=== PATIENT | male | born 1985 | race African-American/Black ===

== ENCOUNTER 2016-12-13 06:58 | Emergency (ER) | payer SELFPAY ==
[~2016-12-13] VITALS: Ht 175.3 cm; Wt 78.0 kg
[~2016-12-13 06:58] MED LIST: METR-1 PO
[2016-12-13 07:11] VITALS: BP 138/86; PULSE 99; RESP 14; TEMP 98.4; O2SAT 96
[2016-12-13] MEDS ORDERED: ACET1CAP18 PO (07:24)
[2016-12-13] MEDS ORDERED: ORPH100T99 PO (07:36)
[2016-12-13] MEDS ORDERED: PRED20 PO (07:36)
--- NOTE | 2016-12-13 07:41 | PD ---
HPI Chief Complaint: Injury Time Seen by Provider: 07:36 Travel History International Travel<30 days: No Contact w/Intl Traveler<30days: No Traveled to known affect area: No History of Present Illness HPI 31-year-old Afro-[place] male presents to emergency Department with worsening right anterior shoulder pain over the past several days. Patient states he did 300 pushups utilizing sets of 40 couple of days ago with increasing right anterior shoulder pain. Patient states he's been taking Tylenol and icing it without improvement. Patient states the pain is now 10 over [address], and is better with rest. Patient denies numbness, tingling, or loss of function of the right upper extremity. He has no other injuries. Has no known drug allergies. PFSH Social History Alcohol Use: Yes Tobacco Use: Yes Substance Use: Yes Allergies-Medications (Allergen,Severity, Reaction): Coded Allergies: No Known Allergies (Unverified , 12/13/16) Reported Meds & Prescriptions Reported Meds & Active Scripts Active Prednisone 20 Mg Tab 20 Mg PO BID Orphenadrine CR (Orphenadrine Citrate) 100 Mg Tab 100 Mg PO Q12HR Flagyl (Metronidazole) 500 Mg Tab 500 Mg PO BID 7 Days Reported Tylenol (Acetaminophen) 325 Mg Cap 325 Mg PO Q6H PRN Review of Systems Except as stated in HPI: all other systems reviewed are Neg General / Constitutional: No: Fever Eyes: No: Visual changes HENT: No: Headaches Cardiovascular: No: Chest Pain or Discomfort Respiratory: No: Shortness of Breath Gastrointestinal: No: Abdominal Pain Genitourinary: No: Dysuria Musculoskeletal: Positive: Myalgias, Pain Skin: No Rash Neurologic: No: Weakness Psychiatric: No: Depression Endocrine: No: Polydipsia Hematologic/Lymphatic: No: Easy Bruising Physical Exam Narrative GENERAL: Patient appears in mild distress. SKIN: Warm and dry. Normal color. Normal turgor. No rash. HEAD: Atraumatic. Normocephalic. EYES: Pupils equal and round. No scleral icterus. No injection or drainage. ENT: No nasal bleeding or discharge. Mucous membranes pink and moist. Pharynx is clear. NECK: Trachea midline. No bony tenderness or step-off. Neck is supple without tenderness. CARDIOVASCULAR: Regular rate and rhythm. RESPIRATORY: No accessory muscle use. Clear to auscultation. Breath sounds equal bilaterally. GASTROINTESTINAL: Abdomen soft, non-tender, nondistended. Hepatic and splenic margins not palpable. MUSCULOSKELETAL: Extremities without clubbing, cyanosis, or edema. No obvious deformities. Patient has point tenderness in the anterior right deltoid and shoulder consistent with rotator cuff tendinitis. Right shoulder Range of motion is limited secondary to pain but strength is intact. NEUROLOGICAL: Awake and alert. No obvious cranial nerve deficits. Motor grossly within normal limits. Five out of 5 muscle strength in the arms and legs. Normal speech. PSYCHIATRIC: Appropriate mood and affect; insight and judgment normal. Data Data Last Documented VS Vital Signs Date Time Temp Pulse Resp B/P Pulse Ox O2 Delivery O2 Flow Rate FiO2 12/13/16 07:11 98.4 99 14 138/86 96 Orders Ketorolac Inj (Toradol Inj) (12/13/16 07:45) [facility] Medical Decision Making Medical Screen Exam Complete: Yes Emergency Medical Condition: Yes Differential Diagnosis Deltoid sprain. Biceps tendon strain. Rotator cuff tendinitis. Narrative Course Patient is medically stable at time of exam. Patient is given Toradol 60 mg IM Patient discharged home with prednisone 20 mg twice a day 5 days. Patient is given Norflex 100 mg twice a day #10. Patient should take Tylenol Extra Strength every 6 hours as discussed as needed. Patient's use heat followed by ice and gentle stretching over the next week. Patient should be reevaluated if symptoms do not improve or worsen. Diagnosis Primary Impression: Right rotator cuff tendinitis Patient Instructions: General Instructions, Rotator Cuff Tendinitis (ED) Additional Instructions: Patient is given Toradol 60 mg IM Patient discharged home with prednisone 20 mg twice a day 5 days. Patient is given Norflex 100 mg twice a day #10. Patient should take Tylenol Extra Strength every 6 hours as discussed as needed. Patient's use heat followed by ice and gentle stretching over the next week. Patient should be reevaluated if symptoms do not improve or worsen. Med/Other Pt SpecificInfo: Prescription(s) given Scripts Prednisone 20 Mg Tab20 Mg PO BID #10 TAB Prov:Uriel Cordero MD 12/13/16 Orphenadrine ER 12 HR (Orphenadrine CR)100 Mg [id number] Mg PO Q12HR #10 TAB Prov:Uriel Cordero MD 12/13/16 Disposition: DISCHARGE HOME Condition: Stable Wilner Kirkpatrick. PA Dec 13, 2016 07:41
[2016-12-13] MEDS ORDERED: KETOROLAC TROMETHAMINE 60 MG/2 ML (IM) VIAL IM ONE (07:45)
== END 2016-12-13 08:03 | disposition home or self-care (01) ==
LOC: NEPB 06:58
DX: M70.811 Other soft tissue disorders related to use, overuse and pressure, right shoulder (principal); Y93.B2 Activity, push-ups, pull-ups, sit-ups; Z72.0 Tobacco use
CPT/HCPCS: 96372; 99283; J1885